=== PATIENT | male | born 1990 | race Caucasian/White ===

== ENCOUNTER 2017-12-26 18:43 | Inpatient (IN) | payer OTHER ==
[~2017-12-26 18:43] MED LIST: NS 500 ML IV ONE
[2017-12-26] MEDS ORDERED: NS 1,000 ML IV ONE ×4 (19:05→22:45)
[2017-12-26] MEDS ORDERED: ONDANSETRON 4 MG/2 ML VIAL IVP ONE ×2 (19:11→20:47)
[2017-12-26] MEDS ORDERED: ONDANSETRON 4 MG/2 ML VIAL ONE (19:11)
--- NOTE | 2017-12-26 19:12 | EDPHY ---
HPI/HX/ROS/PE/MDM Narrative: CHIEF COMPLAINT: Vomiting, hyperglycemia HPI: The patient is a 27 y/o male with insulin-dependent diabetes arriving with his friend complaining of an elevated BGL and persistent vomiting for the last 24 hours following alcohol intake. He drank alcohol moderately yesterday and began to feel poorly afterwards. He started vomiting last night and this has continued throughout the day. He went to an IV hydration bar and he received a banana bag, but this did not alleviate his symptoms. He has been following a strict ketogenic diet for the last month and ate greek fries today to see if it would help, but this also did not alleviate symptoms. His BGL is normally around 120, but has been running high around 350 since he began vomiting. He has an insulin pump and believes it is functioning normally. He has mild associated diarrhea. He has never had these symptoms previously. No fever, abdominal pain. REVIEW OF SYSTEMS: Aside from elements discussed in the HPI, a comprehensive 10-point review of systems was reviewed and is negative. PMH: Insulin-dependent diabetes with pump SOCIAL HISTORY: Friend at bedside. Lives in [place]. [employer] grad student. PHYSICAL EXAM: General:Patient is alert, actively retching. ENT:Eyes are normal to inspection. ENT inspection normal. Neck: Normal inspection. Full range of motion. Respiratory:Tachypneic. Breath sounds normal bilaterally. Cardiovascular: Regular rate and rhythm. Strong peripheral pulses. Normal cap refill. Abdomen:The abdomen is nontender to palpation. There are no peritoneal signs. Back: Normal to inspection. No tenderness to palpation. Skin: Normal color. No rash. Warm and dry. Extremities: Normal appearance. Full range of motion. Neuro: Oriented x3. Normal motor function. Normal sensory function. ED Course: This is a 27 y/o male with type I diabetes with an insulin pump who presents with a 24-hour history of hyperglycemia and persistent vomiting after drinking alcohol and in the setting of a strict ketogenic diet for the last month. On exam, he is actively retching and tachypneic. Abdomen is benign. Plan for IV, labs, symptomatic management. 1L IV NS and 4mg IV Zofran ordered. Labs show BGL 375, CO2 5, WBC 27.34, b-hydroxybutyrate 10.80. Additional 1L IV NS ordered. 2009: Repeat BGL now 303. 2030: Reassessed patient. He is feeling improved and is no longer vomiting. He will bolus his insulin pump here. Repeat CO2 ordered. 2034: Consulted with Dr. Cid, hospitalist service. He recommends proceeding with DKA protocols. Additional labs, insulin drip, and dextrose ordered. Dr. Cid accepts admission. Critical care time spent by me, Dr. Anderson exclusively with this patient was 60 minutes, exclusive of PA time and exclusive of procedures. The organ systems at risk were renal and endocrine and I gave IVF, as well as insulin drip to prevent worsening of the patients condition. MDM: This patient presents with tachypnea and hyperglycemia representing DKA. His glucose is somewhat lower than typically seen in this disease, which I think is likely attributable to his ketogenic diet and recent alcohol binge. He will be placed on intensive DKA protocol and will be admitted to the ICU. I suspect his leukocytosis is likely stress-mediated as there are no focal pain or infectious symptoms. - Data Points Laboratory Results: Laboratory Results 12/26/17 18:55 12/26/17 12/26/17 12/26/17 20:10 20:10 19:04 WBC RBC Hgb POC Hgb 16.7 gm/dL gm/dL 18.4 gm/dL H gm/dL (13.7-17.5) (13.7-17.5) Hct POC Hct 49 % % 54 % H % (40-51) (40-51) MCV MCH MCHC RDW Plt Count MPV Neut % (Auto) Lymph % (Auto) [place] % (Auto) Eos % (Auto) Baso % (Auto) Nucleat RBC Rel Count Absolute Neuts (auto) Absolute Lymphs (auto) Absolute Monos (auto) Absolute Eos (auto) Absolute Basos (auto) Absolute Nucleated RBC Immature Gran % Seg Neutrophils % Band Neutrophils % Lymphocytes % Monocytes % Eosinophils % Basophils % Metamyelocytes % Myelocytes % Promyelocytes % Blast Cells % Immature Gran # Absolute Seg Neuts Absolute Band Neuts Absolute Lymphocytes Absolute Monocytes Absolute Eosinophils Absolute Basophils Absolute Metamyelocyte Absolute Myelocytes Absolute Promyelocytes Absolute Plasma Cells Absolute Blast Cells Plasma Cells % Platelet Estimate Microcytic Cells Turbidity POC Sodium 138 mEq/L mEq/L 135 mEq/L mEq/L (135-145) (135-145) Sodium Pending POC Potassium 4.3 mEq/L mEq/L 4.5 mEq/L mEq/L (3.3-5.0) (3.3-5.0) Potassium Pending POC Chloride 110 mEq/L mEq/L 106 mEq/L mEq/L (97-110) (97-110) Chloride Pending Carbon Dioxide Pending Anion Gap Pending POC BUN 12 mg/dL mg/dL 13 mg/dL mg/dL (7-23) (7-23) BUN Pending Creatinine Pending POC Creatinine 0.8 mg/dL mg/dL 1.0 mg/dL mg/dL (0.7-1.3) (0.7-1.3) Estimated GFR Pending Glucose Pending POC Glucose 303 mg/dL H mg/dL 375 mg/dL H mg/dL (70-100) (70-100) Calcium Pending Lipase Beta-Hydroxybutyrate Specimen Hemolysis 12/26/17 12/26/17 18:55 18:55 WBC 27.34 10^3/uL H 10^3/uL (3.80-9.50) RBC 5.83 10^6/uL 10^6/uL (4.40-6.38) Hgb 16.8 g/dL g/dL (13.7-17.5) POC Hgb Hct 50.9 % % (40.0-51.0) POC Hct MCV 87.3 fL fL (81.5-99.8) MCH 28.8 pg pg (27.9-34.1) MCHC 33.0 g/dL g/dL (32.4-36.7) RDW 13.7 % % (11.5-15.2) Plt Count 482 10^3/uL H 10^3/uL (150-400) MPV 9.7 fL fL (8.7-11.7) Neut % (Auto) Not Reported Lymph % (Auto) Not Reported [place] % (Auto) Not Reported Eos % (Auto) Not Reported Baso % (Auto) Not Reported Nucleat RBC Rel Count Not Reported Absolute Neuts (auto) Not Reported Absolute Lymphs (auto) Not Reported Absolute Monos (auto) Not Reported Absolute Eos (auto) Not Reported Absolute Basos (auto) Not Reported Absolute Nucleated RBC Not Reported Immature Gran % Not Reported Seg Neutrophils % 93.0 % % Band Neutrophils % 0 % % Lymphocytes % 3.0 % % Monocytes % 4.0 % % Eosinophils % 0 % % Basophils % 0 % % Metamyelocytes % 0 % % Myelocytes % 0 % % Promyelocytes % 0 % % Blast Cells % 0 % % Immature Gran # Not Reported Absolute Seg Neuts 25.43 10^/uL H 10^/uL (1.70-6.50) Absolute Band Neuts 0.00 10^3/uL 10^3/uL (0.00-0.70) Absolute Lymphocytes 0.82 10^3/uL L 10^3/uL (1.00-3.00) Absolute Monocytes 1.09 10^3/uL H 10^3/uL (0.30-0.80) Absolute Eosinophils 0.00 10^3/uL L 10^3/uL (0.03-0.40) Absolute Basophils 0.00 10^3/uL L 10^3/uL (0.02-0.10) Absolute Metamyelocyte 0.00 10^3/mL 10^3/mL (0.00-0.00) Absolute Myelocytes 0.00 10^3/mL 10^3/mL (0.00-0.00) Absolute Promyelocytes 0.00 10^3/uL 10^3/uL (0.00-0.00) Absolute Plasma Cells 0.00 10^3/uL 10^3/uL (0.00-0.00) Absolute Blast Cells 0.00 10^3/uL 10^3/uL (0.00-0.00) Plasma Cells % 0 % % Platelet Estimate INCREASED H (ADEQ) Microcytic Cells 1+ H Turbidity < 20 POC Sodium Sodium 139 mEq/L mEq/L (135-145) POC Potassium Potassium 5.0 mEq/L mEq/L (3.3-5.0) POC Chloride Chloride 102 mEq/L mEq/L (97-110) Carbon Dioxide 5 mEq/l L* mEq/l (22-31) Anion Gap 32 mEq/L H mEq/L (8-16) POC BUN BUN 12 mg/dL mg/dL (7-23) Creatinine 1.0 mg/dL mg/dL (0.7-1.3) POC Creatinine Estimated GFR > 60 Glucose 350 mg/dL H mg/dL (70-100) POC Glucose Calcium 10.1 mg/dL mg/dL (8.5-10.4) Lipase 38 IU/L IU/L (23-300) Beta-Hydroxybutyrate 10.80 mmol/L H mmol/L (0.02-0.27) Specimen Hemolysis 20 Medications Given: Discontinued Medications Sodium Chloride (Ns) 1,000 mls @ 0 mls/hr IV EDNOW ONE; Wide Open PRN Reason: Protocol Stop: 12/26/17 19:06 Last Admin: 12/26/17 19:08 Dose: 1,000 mls Sodium Chloride (Ns) 1,000 mls @ 0 mls/hr IV ONCE ONE; Wide Open PRN Reason: Protocol Stop: 12/26/17 19:58 Last Admin: 12/26/17 19:57 Dose: 1,000 mls Ondansetron HCl (Zofran) 4 mg IVP EDNOW ONE Stop: 12/26/17 19:12 Last Admin: 12/26/17 19:13 Dose: 4 mg Point of Care Test Results: Chemistry 12/26/17 12/26/17 20:10 19:04 POC Sodium 138 mEq/L mEq/L 135 mEq/L mEq/L (135-145) (135-145) POC Potassium 4.3 mEq/L mEq/L 4.5 mEq/L mEq/L (3.3-5.0) (3.3-5.0) POC Chloride 110 mEq/L mEq/L 106 mEq/L mEq/L (97-110) (97-110) POC BUN 12 mg/dL mg/dL 13 mg/dL mg/dL (7-23) (7-23) POC Creatinine 0.8 mg/dL mg/dL 1.0 mg/dL mg/dL (0.7-1.3) (0.7-1.3) POC Glucose 303 mg/dL H mg/dL 375 mg/dL H mg/dL (70-100) (70-100) ISTAT H&H 12/26/17 12/26/17 20:10 19:04 POC Hgb 16.7 gm/dL gm/dL 18.4 gm/dL H gm/dL (13.7-17.5) (13.7-17.5) POC Hct 49 % % 54 % H % (40-51) (40-51) General Time Seen by Provider: 12/26/17 18:56 Initial Vital Signs: Initial Vital Signs Temperature (C) 36.7 C 12/26/17 18:46 Heart Rate 100 12/26/17 18:46 Respiratory Rate 28 H 12/26/17 18:46 Blood Pressure 147/90 H 12/26/17 18:46 O2 Sat (%) 97 12/26/17 18:46 O2 Delivery Mode Room Air Allergies/Adverse Reactions: No Known Allergies Allergy (Verified 07/04/16 19:56) Home Medications: Medication Instructions Recorded Insulin Aspart [novoLOG] 0 unit SC ACHS 12/26/17 Departure - Departure Disposition: [facility] Inpatient Acute Clinical Impression: DKA (diabetic ketoacidoses) Qualifiers: Diabetes mellitus type: type 1 Diabetes mellitus complication detail: without coma Qualified Code(s): E10.10 - Type 1 diabetes mellitus with ketoacidosis without coma Condition: Fair Report Scribed for: Usman Anderson Report Scribed by: Bianca Saab Date of Report: 12/26/17 Time of Report: 19:08 Physician Review and Approval Statement: Portions of this note were transcribed by an ED scribe. I personally performed the history, physical exam, and medical decision making; and confirm the accuracy of the information in the transcribed note.
[2017-12-26 19:15] LABS: PLATELET COUNT 482 10^3/uL (150-400)
[2017-12-26] MEDS ORDERED: D10W 1,000 ML IV ONE (20:40)
[2017-12-26] MEDS ORDERED: D50W 25 GM/50 ML SYR IVP PRN ×2 (20:40→20:45)
[2017-12-26] MEDS ORDERED: INSULIN REGULAR HUMAN 100 UNIT, COSIGN. REQUIRED 1 EA in NS 100 ML IV ONE (20:40)
[2017-12-26] MEDS ORDERED: INSULIN REGULAR HUMAN 100 UNIT in NS 100 ML IV SCH (20:45)
[2017-12-26] MEDS ORDERED: D10W 1,000 ML IV SCH (20:45)
[2017-12-26] MEDS ORDERED: PROMETHAZINE HCL 25 MG TAB PO PRN (21:23)
[2017-12-26] MEDS ORDERED: HYDROmorphone HCL/NS 0.5 MG/ML SYR IVP PRN (21:23)
[2017-12-26] MEDS ORDERED: ACETAMINOPHEN 325 MG TAB PO PRN (21:23)
[2017-12-26] MEDS ORDERED: PROMETHAZINE HCL 25 MG/ML INJ IVP PRN ×2 (21:23→22:41)
[2017-12-26] MEDS ORDERED: ONDANSETRON DISINTEGRATING 4 MG TAB PO PRN ×2 (21:23→22:41)
[2017-12-26] MEDS ORDERED: ONDANSETRON 4 MG/2 ML VIAL IVP PRN ×2 (21:23→22:40)
[2017-12-26] MEDS: SODIUM BICARBONATE 150 MEQ in D5W 1,000 ML IV SCH (22:03)
--- NOTE | 2017-12-26 22:49 | PDGENHP ---
History and Physical - Chief Complaint Acute nausea and vomiting - History of Present Illness Primary care provider: [facility] Primary record keeper: Dr. Ash HPI: 27-year-old male presenting with acute nausea and vomiting characterized as persistent, associated with chills, labored breathing, increased thirst, polyuria, with onset of symptoms approximately 24 hr ago and constant duration thereafter. The patient reports that for the past 3 weeks he has been on a ketogenic diet eating mostly vegetables and proteins, no carbs. On the day prior to arrival he and his fiancee went to a barbecue and the patient a consumed a moderate amount of alcohol. After the barbecue, the patient began experiencing the aforementioned symptoms and his glucose levels became elevated. During the entirety of his ketogenic diet, the patient reports his glucose levels have been fairly constant between 120 and 150. After the barbecue , his glucose levels became persistently 350. Despite bolusing approximately 45 units of insulin through pump, the patient's glucose levels remained elevated. He was unable to tolerate oral intake and presented with an anion gap of 32. He received 3 L normal saline and was placed on the insulin drip protocol. Prior to the onset of symptoms, the patient had otherwise been feeling well and had not had any infectious symptoms. History Information - Allergies/Home Medication List Allergies/Adverse Reactions: No Known Allergies Allergy (Verified 07/04/16 19:56) Home Medications: Insulin Aspart [novoLOG] 0 unit SC ACHS 12/26/17 [Last Taken Unknown] I have personally reviewed and updated: family history, medical history, social history, surgical history - Past Medical History diabetes type 1 (With 1 DKA episode 12 years ago, stable on an insulin pump thereafter, his basal rate is approximately 1.2 units) - Surgical History Reports: appendectomy - Family History Additional family history: No family history of autoimmune or rheumatologic issues - Social History Smoking Status: Former smoker Alcohol Use: Occasionally (Alcohol binge on day prior) Drug Use: Marijuana Additional social history: Student, currently on a ketogenic diet for approximately 3 weeks Review of Systems Review of Systems: ROS: 10pt was reviewed & negative except for what was stated in HPI & below Constitutional: Reports: chills Gastrointestinal: Reports: vomitting, abdominal pain, nausea Genitourinary: Reports: other (Polyuria) Physical Exam Physical Exam: Temp Pulse Resp BP Pulse Ox 37.8 C 95 19 140/85 H 99 12/26/17 22:00 12/26/17 22:00 12/26/17 22:00 12/26/17 22:00 12/26/17 22:00 Constitutional: no apparent distress, uncomfortable, No not in pain (Mild) Eyes: PERRL, anicteric sclera, EOMI Ears, Nose, Mouth, Throat: hearing normal, other (Tacky mucous membranes) Cardiovascular: tachycardia, No systolic murmur, No irregularly irregular, No edema Respiratory: no respiratory distress, no rales or rhonchi, clear to auscultation Gastrointestinal: tenderness (Mild to moderate depth palpation), other ( Hypoactive bowel sounds), No guarding, No distension Skin: warm, No abrasion, No rash Neurologic: AAOx3 Psychiatric: not anxious, not encephalopathic, flat affect, No agitated Lab Data & Imaging Review 12/26/17 18:55 12/26/17 20:10 WBC 27.34 10^3/uL (3.80-9.50) H 12/26/17 18:55 RBC 5.83 10^6/uL (4.40-6.38) 12/26/17 18:55 Hgb 16.8 g/dL (13.7-17.5) 12/26/17 18:55 POC Hgb 16.0 gm/dL (13.7-17.5) 12/26/17 22:18 Hct 50.9 % (40.0-51.0) 12/26/17 18:55 POC Hct 47 % (40-51) 12/26/17 22:18 MCV 87.3 fL (81.5-99.8) 12/26/17 18:55 MCH 28.8 pg (27.9-34.1) 12/26/17 18:55 MCHC 33.0 g/dL (32.4-36.7) 12/26/17 18:55 RDW 13.7 % (11.5-15.2) 12/26/17 18:55 Plt Count 482 10^3/uL (150-400) H 12/26/17 18:55 MPV 9.7 fL (8.7-11.7) 12/26/17 18:55 Neut % (Auto) Not Reported 12/26/17 18:55 Lymph % (Auto) Not Reported 12/26/17 18:55 [place] % (Auto) Not Reported 12/26/17 18:55 Eos % (Auto) Not Reported 12/26/17 18:55 Baso % (Auto) Not Reported 12/26/17 18:55 Nucleat RBC Rel Count Not Reported 12/26/17 18:55 Absolute Neuts (auto) Not Reported 12/26/17 18:55 Absolute Lymphs (auto) Not Reported 12/26/17 18:55 Absolute Monos (auto) Not Reported 12/26/17 18:55 Absolute Eos (auto) Not Reported 12/26/17 18:55 Absolute Basos (auto) Not Reported 12/26/17 18:55 Absolute Nucleated RBC Not Reported 12/26/17 18:55 Immature Gran % Not Reported 12/26/17 18:55 Seg Neutrophils % 93.0 % 12/26/17 18:55 Band Neutrophils % 0 % 12/26/17 18:55 Lymphocytes % 3.0 % 12/26/17 18:55 Monocytes % 4.0 % 12/26/17 18:55 Eosinophils % 0 % 12/26/17 18:55 Basophils % 0 % 12/26/17 18:55 Metamyelocytes % 0 % 12/26/17 18:55 Myelocytes % 0 % 12/26/17 18:55 Promyelocytes % 0 % 12/26/17 18:55 Blast Cells % 0 % 12/26/17 18:55 Immature Gran # Not Reported 12/26/17 18:55 Absolute Seg Neuts 25.43 10^/uL (1.70-6.50) H 12/26/17 18:55 Absolute Band Neuts 0.00 10^3/uL (0.00-0.70) 12/26/17 18:55 Absolute Lymphocytes 0.82 10^3/uL (1.00-3.00) L 12/26/17 18:55 Absolute Monocytes 1.09 10^3/uL (0.30-0.80) H 12/26/17 18:55 Absolute Eosinophils 0.00 10^3/uL (0.03-0.40) L 12/26/17 18:55 Absolute Basophils 0.00 10^3/uL (0.02-0.10) L 12/26/17 18:55 Absolute Metamyelocyte 0.00 10^3/mL (0.00-0.00) 12/26/17 18:55 Absolute Myelocytes 0.00 10^3/mL (0.00-0.00) 12/26/17 18:55 Absolute Promyelocytes 0.00 10^3/uL (0.00-0.00) 12/26/17 18:55 Absolute Plasma Cells 0.00 10^3/uL (0.00-0.00) 12/26/17 18:55 Absolute Blast Cells 0.00 10^3/uL (0.00-0.00) 12/26/17 18:55 Plasma Cells % 0 % 12/26/17 18:55 Platelet Estimate INCREASED (ADEQ) H 12/26/17 18:55 Microcytic Cells 1+ H 12/26/17 18:55 Turbidity < 20 12/26/17 18:55 POC Sodium 139 mEq/L (135-145) 12/26/17 22:18 Sodium 141 mEq/L (135-145) 12/26/17 20:10 POC Potassium 4.2 mEq/L (3.3-5.0) 12/26/17 22:18 Potassium 4.8 mEq/L (3.3-5.0) 12/26/17 20:10 POC Chloride TNP 12/26/17 22:18 Chloride 109 mEq/L (97-110) 12/26/17 20:10 Carbon Dioxide 6 mEq/l (22-31) L* 12/26/17 20:10 Anion Gap 26 mEq/L (8-16) H 12/26/17 20:10 POC BUN 15 mg/dL (7-23) 12/26/17 22:18 BUN 11 mg/dL (7-23) 12/26/17 20:10 Creatinine 0.8 mg/dL (0.7-1.3) 12/26/17 20:10 POC Creatinine 0.8 mg/dL (0.7-1.3) 12/26/17 22:18 Estimated GFR > 60 12/26/17 20:10 Glucose 277 mg/dL (70-100) H 12/26/17 20:10 POC Glucose 263 mg/dL (70-100) H 12/26/17 22:18 Calcium 8.5 mg/dL (8.5-10.4) 12/26/17 20:10 Lipase 38 IU/L (23-300) 12/26/17 18:55 Beta-Hydroxybutyrate 9.68 mmol/L (0.02-0.27) H 12/26/17 20:41 Specimen Hemolysis 20 12/26/17 18:55 Assessment & Plan Assessment: 27-year-old male presents with acute diabetic ketoacidosis Plan: 1. Acute diabetic ketoacidosis. Evidenced by positive beta hydroxybutyrate, anion gap of 32, hyperglycemia, most likely secondary to a combination of ketogenic diet, alcohol ketosis, and resultant diabetic ketoacidosis with hyperglycemia resistant to bolusing from his insulin pump -no evidence of additional infection -given significantly decreased serum bicarbonate level as well as possible alcohol ketosis component, will placed on D5 bicarb drip as well as insulin drip and monitor frequent labs/glucose level per DKA protocol -discussed with Dr. Wilks, please contact him if there are additional questions regarding the fluids overnight -maintain NPO -discussed with Dr. Anderson, we both agree to turn off the patient's insulin pump -once patient's anion gap closes, he can receive a 1 time dose of 10 units of NPH for bridging, and then reinitiate his pump, thus verifying that the patient has pump is in fact adequately managing his glucose levels prior to discharge 2. Systemic inflammatory response syndrome. Evidenced by tachycardia and leukocytosis, most likely secondary to DKA, continue monitor white blood cell count, monitor vital signs Diet. NPO with IV fluids Prophylaxis. Low risk patient, SCDs Code. Full Disposition. Anticipated discharge is uncertain this time, anticipated length stay is greater than 48 hr for reasonable medical necessity including acute severe diabetic ketoacidosis with systemic inflammatory response syndrome. 35 min of critical care time spent with this patient, at bedside, coordinating care with the aforementioned providers as well as the patient's ICU nurses, specifically addressing his severe acute DKA rendering high risk of worsening morbidity and/or mortality and critically ill.
[2017-12-26 23:42] LABS: CREATINE KINASE 112 IU/L (0-224)
[2017-12-26] MEDS ORDERED: NS 500 ML IV ONE (23:45)
[2017-12-27] MEDS ORDERED: PROTOCOL POTASSIUM 1 DOSE MISC PRN ×2 (01:49)
[2017-12-27] MEDS: POTASSIUM Cl (KCl) 100 ML IV SCH ×9 (02:20→19:13)
[2017-12-27 05:31] LABS: PLATELET COUNT 332 10^3/uL (150-400)
[2017-12-27] MEDS: SODIUM BICARBONATE 150 MEQ in D5W 1,000 ML IV SCH (06:20)
[2017-12-27] MEDS: CALCIUM CARBONATE 500 MG CHEWABLE TAB PO SCH ×3 (08:06→21:59)
--- NOTE | 2017-12-27 10:00 | ASMTCMCOM ---
CM Note CM Note Notes: 27yr old male admitted for N/V, DKA, SIRS. He has a Hx of DM-1, occ binge drinks and uses THC. Patient had been on a ketogenic diet for 3wks prior to binge drinking. Patient's parents live in [facility] and he is a [employer] student. He will be given ETOH res. No other discharge needs anticipated. Date Signed: 12/27/2017 09:59 AM Electronically Signed By:Domonique Coronel LCSW
--- NOTE | 2017-12-27 12:06 | PDMN ---
Medical Necessity Medical necessity: MCG; M130 Diabetes: A-1 day: INPT DKA with glucose > 350, anion gap 32, VBG pH 7.17, NPO, SIRS : tachycardia, leukocytosis, cont. to monitor anticipate > 2 midnights.
[2017-12-27] MEDS ORDERED: MAGNESIUM SULF 1 GM/DEXTROSE 100 ML IV ONE (13:41)
[2017-12-27] MEDS ORDERED: MAGNESIUM SULF 1 GM/DEXTROSE 100 ML BAG IV ONE (13:41)
--- NOTE | 2017-12-27 15:35 | HOSPPROG ---
Hospitalist Progress Note Assessment/Plan: Assessment: 27-year-old male presents with acute diabetic ketoacidosis Plan: 1. Acute diabetic ketoacidosis. Evidenced by positive beta hydroxybutyrate, anion gap of 32, hyperglycemia, most likely secondary to a combination of ketogenic diet, alcohol ketosis, and resultant diabetic ketoacidosis with hyperglycemia resistant to bolusing from his insulin pump -no evidence of additional infection -d/w Dr. Manzano on team rounds, acidosis resolved and anion gap closed s/p insulin gtt + bicarb gtt, rechecking BMP now and if remains closed, will adv diet to clears, start insulin pump -if gluc remains < 200, will allow pump to manage the basal/bolus; if gluc increasing > 200, will add some NPH to support the pump's basal rate -adjust IVF to NS 2. Systemic inflammatory response syndrome. Evidenced by tachycardia and leukocytosis, most likely secondary to DKA, resolved 3. PVCs and PACs. Present on tele, tx K/Mg to 4/2 w/ IV supplementation Diet. Clears w/ IVF Prophylaxis. Low risk patient, SCDs Code. Full Disposition. Anticipated discharge is 12/28, pending stabilization of above. High-level medical complexity given the patient's underlying type 1 diabetes, DKA, insulin pump management, with high risk risk of worsening morbidity secondary to the issues outlined above. Subjective: ongoing nausea, improving this afternoon Objective: Vital Signs Temp Pulse Resp BP Pulse Ox 36.6 C 75 18 119/61 99 12/27/17 08:00 12/27/17 15:00 12/27/17 15:00 12/27/17 15:00 12/27/17 15:00 Laboratory Results 12/27/17 05:06 12/27/17 09:55 12/26/17 12/27/17 12/28/17 05:59 05:59 05:59 Intake Total 1448 Output Total 1700 800 Balance -252 -800 - Physical Exam Constitutional: no apparent distress, appears nourished, not in pain, uncomfortable Cardiovascular: regular rate and rhythym, no murmur, rub, or gallop, No edema Respiratory: no respiratory distress, no rales or rhonchi, clear to auscultation Gastrointestinal: normoactive bowel sounds, soft, non-tender abdomen, no palpable masses, No guarding, No distension Neurologic: AAOx3 Psychiatric: not anxious, not encephalopathic, flat affect, No agitated ICD10 Worksheet Patient Problems: Problems Problem Status Onset Acute appendicitis Active DKA (diabetic ketoacidoses) Acute
[2017-12-27] MEDS ORDERED: POTASSIUM Cl (KCl) 40 MEQ in NS 1,000 ML IV SCH (18:00)
[2017-12-27] MEDS ORDERED: D50W 25 GM/50 ML SYR IVP PRN (18:10)
[2017-12-27] MEDS ORDERED: INSULIN PUMP, PATIENT OWN 1 EA MISC SCH (18:15)
[2017-12-28 00:02] VITALS: BP 106/53
[2017-12-28] MEDS ORDERED: MAGNESIUM SULF 1 GM/DEXTROSE 100 ML BAG IV ONE (10:48)
--- NOTE | 2017-12-28 22:32 | GDS ---
[f rep st] DISCHARGE SUMMARY DISCHARGE DIAGNOSES: 1. Acute diabetic ketoacidosis. 2. Suspected gastroesophageal reflux disease. 3. Severe hypokalemia. 4. Acute systemic inflammatory response syndrome. CONSULTATIONS DURING THIS ADMISSION: Pulmonary Critical Care. PROCEDURES DURING THIS ADMISSION: None. CHIEF COMPLAINT: Acute nausea and vomiting. SUBJECTIVE: Patient is feeling well at the time of discharge. He is not experiencing any significan t symptoms. PHYSICAL EXAM: VITAL SIGNS: Heart rate 80, systolic blood pressure 90-110, afebrile overnight, net positive 1.3 L overnight. GENERAL: Alert, awake, oriented x3, no apparent distress. Pain level 0/1 0. DATA: Anion gap 10, glucose 130, hemoglobin A1c 6.3%, potassium 3.4, magnesium 1.9. HOSPITAL COURSE: The patient presented with acute systemic inflammatory response syndrome as evidenc ed by tachycardia, tachypnea, leukocytosis, most likely secondary to acute diabetic ketoacidosis as e videnced by an anion gap of 32, low pH, elevated beta hydroxybutyrate, glucose level between 250 and 300. The cause of the patient's diabetic ketoacidosis was a combination of a ketogenic diet, as well as excessive consumption of alcohol and underlying diabetes mellitus type 1. The patient's insulin pump was unable to accommodate despite bolusing 45 units of insulin prior to arrival. The patient wa s in visible distress, required a combination of insulin drip, as well as a bicarbonate drip with D5 in order to stabilize in the intensive care unit. Using the DKA protocol, the patient's anion gap cl osed, his glucose level was safely controlled, and the patient was transitioned from the insulin drip to his home pump, which we ensured was functioning well and providing adequate coverage with his bas al and bolus functions. We also treated the patient for severe hypokalemia with aggressive IV and or al potassium, as well as IV magnesium. The patient was experiencing frequent PVCs and PACs on teleme try, most likely secondary to his most recent acid-base disturbance, as well as his electrolyte abnor malities. These did not devolve into any arrhythmias, and the patient's magnesium and potassium leve ls have been properly supplemented prior to discharge. 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 We did check his hemoglobin A1c, and it was 6.3%, indicating th e patient has good glucose control outside of this episode of DKA. Of note, the patient did not demo nstrate any evidence of infection, and the 1 fever noted in the chart was a spurious and inaccurate t emperature reading, the patient did not actually have any fevers or infectious symptoms during his ho spitalization. DISCHARGE MEDICATIONS: Please see official discharge medication reconciliation sheet in chart. Of aldair ernandez, patient is being initiated on pantoprazole for 2 weeks for some gastroesophageal reflux, which w as secondary to his vomiting and resultant esophagitis, and he is also being continued on his insulin pump. He should utilize as-needed Tums for symptomatic relief. DISCHARGE INSTRUCTIONS: Please follow up with [facility] as previously sched ed and have labs performed prior to your appointment. Please follow up with Dr. Barb Ash following that appointment. Greater than 30 minutes were spent on direct patient care, as well as discharge planning and preparat ion. Copy requested to: [facility] /[id number]/[id number]
== END 2017-12-28 12:30 | disposition home or self-care (01) | DRG 639 ==
LOC: OBSVTOIN 20:42 → F2N 21:51
PROVIDERS: ADMIT Internal Medicine; ATTEND Internal Medicine
DX: E10.10 Type 1 diabetes mellitus with ketoacidosis without coma (principal); E87.6 Hypokalemia; Z96.41 Presence of insulin pump (external) (internal); Z79.4 Long term (current) use of insulin; Z87.891 Personal history of nicotine dependence
CPT/HCPCS: 82435-PO; 82565-PO; 82947-PO; 84132-PO; 84295-PO; 84520-PO; 85014-PO; 96374; J1815; J2405; J2550; J3475; J3480